=== PATIENT | female | born 1950 ===

== ENCOUNTER 2016-11-30 06:02 | Day surgery (SDC) | payer MEDICARE ==
[2016-11-20 09:56] VITALS: BMI 41.1
[2016-11-20 11:20] VITALS: RESP 18
[2016-11-30] MEDS ORDERED: Succinylcholine 200 mg/10 ml Inj IV ONE (07:11)
[2016-11-30] MEDS ORDERED: Phenylephrine 10 mg/ml Inj ONE (07:11)
[2016-11-30] MEDS ORDERED: ePHEDrine 50 mg/ml Inj ONE (07:11)
[2016-11-30] MEDS ORDERED: Midazolam 2 MG/2 ML VIAL ONE (07:11)
[2016-11-30] MEDS ORDERED: Propofol 10 mg/ml Inj (20 ML) ONE (07:11)
[2016-11-30] MEDS ORDERED: Lactated Ringer's 1,000 ML IV ONE ×2 (08:30→08:44)
[2016-11-30] MEDS ORDERED: HYDROmorphone 0.5 mg/0.5 ml ISec IVP PRN (08:51)
--- NOTE | 2016-11-30 08:59 | PCM.SURG1 ---
Surgeon's Initial Post Op Note - Surgeon's Notes Surgeon: Talisha [employer] Central Office Installer: Colby Cleaning Type of Anesthesia: General Endo Anesthesia Administered By: Dr Bray Pre-Operative Diagnosis: healed distal radius fx with painful hardware Operative Findings: as above Post-Operative Diagnosis: as above Operation Performed: Hardware remov al. evaluation of wrist under anaesthesia. positiong of fluoro/interpretation of video Specimen/Specimens Removed: pins Estimated Blood Loss: EBL {In ML}: 2 Blood Products Given: N/A Drains Used: No Drains Post-Op Condition: Good Date of Surgery/Procedure: 11/30/16 Time of Surgery/Procedure: 08:30 (time in room 0800/ end time 8:40)
[2016-11-30 10:22] VITALS: O2SAT 98
[2016-11-30 10:56] VITALS: BP 111/58; PULSE 80; TEMP 97.8
--- NOTE | 2016-11-30 11:20 | OP ---
PROCEDURE DATE: 11/30/2016 PREOPERATIVE DIAGNOSES: Status post healed left distal radius fracture. The patient had undergone c losed reduction and pin fixation. The patient presents at this point in time with a healed radial fr acture and prominent painful hardware. POSTOPERATIVE DIAGNOSES: Status post healed left distal radius fracture. The patient had undergone closed reduction and pin fixation. The patient presents at this point in time with a healed radial f racture and prominent painful hardware. PROCEDURES: 1. Hardware removal, left wrist. 2. Manipulation of the wrist under anesthesia. 3. Positioning of fluoroscope, interpretation of video images. SURGEON: Red Woodall MD ANESTHESIA: LMA by Dr. Bray. COMPLICATIONS: None. DRAINS: None. The preoperative consent had been accomplished in the presence of the culturally competent notary public . Pros, cons, risks and benefits of surgical approach were discussed. SPECIMENS REMOVED: Pins. ESTIMATED BLOOD LOSS: Approximately 2 mL. OPERATIVE INDICATION: The patient presents with a healed distal radius fracture with painful hardwar e. OPERATIVE PROCEDURE: After having obtained informed consent through the culturally competent transla tor, after having identified side, site, and procedure in a critical pause/timeout, after the satisfa ctory induction of the anesthetic, the patient identified, in the supine position with all bony promi nences well padded, the left upper extremity is prepped and free draped in the usual fashion for uppe r extremity surgery. Under the surgeon's direction, the fluoroscope was positioned, video images are generated, therapeutic decisions are made therefrom. This having been accomplished, the pins were r emoved. The wound is thoroughly irrigated. At this point in time, the fracture is manipulated under anesthesia and fluoroscopy. The fracture is found to be healed in acceptable position. Each of the 3 pins are identified. A small incision is accomplished. The 3 pins are removed. The wound is tho roughly irrigated. Primary closure is with interrupted nylon. Compression dressing is applied. Aga in, the wrist had been manipulated, found to be stable and range of motion was acceptable. No compli cations, no drains. The patient was transferred from the operating table to the stretcher, having to lerated the procedure well. Red Woodall MD cc: [id number] TT: 11/30/2016 11:19:49 en
--- NOTE | 2016-12-01 15:18 | RAD ---
PROCEDURE: Fluoroscopy dated 11/30/2016. HISTORY: Left wrist ORIF. COMPARISON: Correlation made with prior radiographs an fluoroscopy study dated 09/12/2016 and 09/13/2016 respectively TECHNIQUE: For fluoroscopic images of the left wrist performed. FINDINGS: Study demonstrates apparent removal of previously noted fixation hardware distal left radius on final film labeled 4. . Approximately 4.2 seconds of fluoroscopy time utilized. Radiation dose = 5.60 mgrad IMPRESSION: Apparent on removal previously noted fixation hardware distal left radius as above
== END 2016-11-30 12:30 | disposition home or self-care (01) ==
LOC: H.OPSURG 06:02
PROVIDERS: ATTEND Orthopaedic Surgery
DX: T84.84XA Pain due to internal orthopedic prosthetic devices, implants and grafts, initial encounter (principal)
CPT/HCPCS: 20680; 25259; 88300; 88304; J0330; J0690; J2001; J2250; J2370; J2704; J3010; J7120

== ENCOUNTER 2018-12-23 11:41 | Emergency (ER) | payer MEDICARE ==
[2018-12-23 11:42] VITALS: BMI 41.1
[2018-12-23 11:46] VITALS: RESP 18; O2SAT 97
[2018-12-23 13:08] LABS: BASO % 0.8 % (0.0-2.0); EOS # 0.2 K/uL (0.0-0.7); EOS % 5.1 % (0.0-4.0); HEMOGLOBIN 13.6 g/dL (12.0-16.0); LYMPH # 1.2 K/uL (1.0-4.3); LYMPH % 28.2 % (20.0-40.0); MEAN CELL VOLUME 89.8 fl (81.0-99.0); MEAN CORPUSCULAR HEMOGLOBIN 30.7 pg (27.0-31.0); MEAN CORPUSCULAR HGB CONC 34.2 g/dL (33.0-37.0); MONO # 0.2 K/uL (0.0-0.8); MONO % 5.4 % (0.0-10.0); NEUT # 2.6 K/uL (1.8-7.0); NEUT % 60.5 % (50.0-75.0); RBC 4.43 Mil/uL (3.80-5.20); RED CELL DISTRIBUTION WIDTH 12.6 % (11.5-14.5); WHITE BLOOD COUNT 4.3 K/uL (4.8-10.8)
[2018-12-23 13:15] LABS: BLOOD UREA NITROGEN 12 mg/dl (7-17); CALCIUM 9.3 mg/dL (8.4-10.2); GFR NON-AFRICAN AMERICAN > 60
--- NOTE | 2018-12-23 14:09 | CT ---
Date of service: 12/23/2018 PROCEDURE: CT HEAD WITHOUT CONTRAST. HISTORY: Paresthesias COMPARISON: Comparison made with CT scan brain 10/18/2015. TECHNIQUE: Axial computed tomography images were obtained through the head/brain without intravenous contrast. Radiation dose: Total exam DLP = 644.02 mGy-cm. This CT exam was performed using one or more of the following dose reduction techniques: Automated exposure control, adjustment of the mA and/or kV according to patient size, and/or use of iterative reconstruction technique. FINDINGS: HEMORRHAGE: No acute parenchymal, subarachnoid or extra-axial hemorrhage. BRAIN: No evidence of large acute infarct. There may be some minimal chronic periventricular white matter ischemic changes. Redemonstrated is an apparent partially calcified extra-axial mass contiguous with the inner table right frontal calvarium. Findings most consistent with a small meningioma associate with hyperostotic changes of the overlying inner table. This lesion measures approximately 12 x 8.0 mm.. Small nonspecific calcification left inferior frontal pole unchanged. Another small calcification right parasagittal posterior parieto-occipital cortex nonspecific. VENTRICLES: Unremarkable. No hydrocephalus. CALVARIUM: Hyperostotic changes inner table right frontal calvarium which overlies a small right frontal meningioma. Calvarium otherwise intact PARANASAL SINUSES: Mild mucosal thickening seen within few ethmoid air cells and left maxillary sinus. MASTOID AIR CELLS: Unremarkable as visualized. No inflammatory changes. OTHER FINDINGS: None. IMPRESSION: No acute intracranial hemorrhage. No evidence of large acute infarct however suspect minimal chronic periventricular white matter ischemic changes. Stable tiny nonspecific calcification left inferior frontal pole.. There is another small calcification right parasagittal posterior parieto-occipital cortex nonspecific. Stable small right frontal meningioma with associated hyperostotic changes of the overlying inner table of the frontal calvarium.
--- NOTE | 2018-12-23 15:38 | ED PDOC ---
HPI: Altered Mental Status Time Seen by Provider: 12/23/18 12:06 Chief Complaint (Nursing): Weakness/Neurological Deficit Chief Complaint (Provider): Weakness/Neurological Deficit History Per: Patient Onset/Duration Of Symptoms: Other (6 months) Additional Complaint(s): 68 y/o female presents to the ED complaining of paresthesia for several months. Patient states it has been more consistent for the last month. Patient reports numbness on both arms, legs, and the lower part of her face for at least a month. She states she also been having aspira pressure of the head for a month. Patient denies dizziness, chest pain, fever, weakness, or any gait stability. PMD: none provider Past Medical History Reviewed: Historical Data, Nursing Documentation, Vital Signs Vital Signs: Last Vital Signs Temp 98.2 F 12/23/18 11:45 Pulse 82 12/23/18 11:45 Resp 18 12/23/18 11:45 BP 155/76 H 12/23/18 11:45 Pulse Ox 97 12/23/18 11:45 - Medical History PMH: Anxiety, Arthritis, Depression, Gastritis, Hypercholesterolemia Denies: Chronic Kidney Disease - Surgical History Surgical History: Cholecystectomy - Family History Family History: States: Unknown Family Hx - Home Medications Home Medications: Ambulatory Orders Medication Instructions Recorded Omeprazole 20 mg PO DAILY PRN 10/18/15 Acetaminophen [Tylenol 325mg tab] 650 mg PO Q6 PRN #30 tab 09/14/16 Docusate [Colace] 100 mg PO DAILY #30 cap 09/14/16 oxyCODONE/Acetaminophen [Percocet 1 ea PO Q8 PRN #20 tab 09/14/16 5/325 mg Tab] - Allergies Allergies/Adverse Reactions: Allergies Allergy/AdvReac Type Severity Reaction Status Date / Time No Known Allergies Allergy Verified 09/12/16 08:23 Review of Systems ROS Statement: Except As Marked, All Systems Reviewed And Found Negative Physical Exam - Reviewed Nursing Documentation Reviewed: Yes Vital Signs Reviewed: Yes - Physical Exam Appears: Positive for: Well, Non-toxic, No Acute Distress Head Exam: Positive for: ATRAUMATIC, NORMAL INSPECTION, NORMOCEPHALIC Skin: Positive for: Normal Color, Warm, Dry Eye Exam: Positive for: EOMI, Normal appearance, PERRL ENT: Positive for: Normal ENT Inspection Neck: Positive for: Normal, Painless ROM Cardiovascular/Chest: Positive for: Regular Rate, Rhythm. Negative for: Murmur Respiratory: Positive for: Normal Breath Sounds. Negative for: Respiratory Distress Gastrointestinal/Abdominal: Positive for: Normal Exam, Soft. Negative for: Tenderness Back: Positive for: Normal Inspection. Negative for: L CVA Tenderness, R CVA Tenderness Extremity: Positive for: Normal ROM Neurological/Psych: Positive for: Awake, Alert, Normal Tone, Oriented (x3). Negative for: Gait, Motor/Sensory Deficits, Facial Droop - Laboratory Results Result Diagrams: 12/23/18 12:57 12/23/18 12:57 - ECG O2 Sat by Pulse Oximetry: 97 Medical Decision Making Medical Decision Making: Time:1230 Initial Impression: Paresthesia Initial Plan: Brain mass, MS, peripheral neuropathy -CT -BMP -Urine dipstick -CBC -Glucose -Accucheck Scribe Attestation: Documented by Arianne Salazar, acting as a scribe for Inocente Grimaldo. Provider Scribe Attestation: All medical record entries made by the Scribe were at my direction and personally dictated by me. I have reviewed the chart and agree that the record accurately reflects my personal performance of the history, physical exam, medical decision making, and the department course for this patient. I have also personally directed, reviewed, and agree with the discharge instructions and disposition. 1406: FINDINGS: HEMORRHAGE: No acute parenchymal, subarachnoid or extra-axial hemorrhage. BRAIN: No evidence of large acute infarct. There may be some minimal chronic periventricular white matter ischemic changes. Redemonstrated is an apparent partially calcified extra-axial mass contiguous with the inner table right frontal calvarium. Findings most consistent with a small meningioma associate with hyperostotic changes of the overlying inner table. This lesion measures approximately 12 x 8.0 mm.. Small nonspecific calcification left inferior frontal pole unchanged. Another small calcification right parasagittal posterior parieto-occipital cortex nonspecific. VENTRICLES: Unremarkable. No hydrocephalus. CALVARIUM: Hyperostotic changes inner table right frontal calvarium which overlies a small right frontal meningioma. Calvarium otherwise intact PARANASAL SINUSES: Mild mucosal thickening seen within few ethmoid air cells and left maxillary sinus. MASTOID AIR CELLS: Unremarkable as visualized. No inflammatory changes. OTHER FINDINGS: None. IMPRESSION: No acute intracranial hemorrhage. No evidence of large acute infarct however suspect minimal chronic periventricular white matter ischemic changes. Stable tiny nonspecific calcification left inferior frontal pole.. There is another small calcification right parasagittal posterior parieto-occipital cortex nonspecific. Stable small right frontal meningioma with associated hyperostotic changes of the overlying inner table of the frontal calvarium. Disposition - Clinical Impression Clinical Impression: Meningioma, Paresthesia - Patient ED Disposition Is Patient to be Admitted: No Doctor Will See Patient In The: Office Counseled Patient/Family Regarding: Studies Performed, Diagnosis, Need For Followup - Disposition Referrals: Quan Joe MD [Medical Doctor] - Disposition: Routine/Home Disposition Time: 15:30 Condition: GOOD Additional Instructions: MATTHEW REED, thank you for letting us take care of you today. Your provider was Inocente Grimaldo MD and you were treated for HAND,LOWER FACE,LEG PAIN. The emergency medical care you received today was directed at your acute symptoms. If you were prescribed any medication, please fill it and take as directed. It may take several days for your symptoms to resolve. Return to the Emergency Department if your symptoms worsen, do not improve, or if you have any other problems. Please contact your doctor or call one of the physicians/clinics you have been referred to that are listed on the Patient Visit Information form that is included in your discharge packet. Bring any paperwork you were given at discharge with you along with any medications you are taking to your follow up visit. Our treatment cannot replace ongoing medical care by a primary care provider outside of the emergency department. Thank you for allowing the [facility] team to be part of your care today. If you had an X-Ray or CT scan: A Radiologist will review the ED reading if any change in treatment is needed we will contact you. Instructions: Meningioma , Paresthesias (DC) Forms: [employer] (Argentine) Print Language: AMHARIC
[2018-12-23 20:59] VITALS: BP 126/62; PULSE 60; TEMP 98.6
== END 2018-12-23 17:39 | disposition home or self-care (01) ==
LOC: H.ER 11:41
DX: D32.0 Benign neoplasm of cerebral meninges (principal); R20.0 Anesthesia of skin; Z86.59 Personal history of other mental and behavioral disorders; G93.9 Disorder of brain, unspecified